=== PATIENT | female | born 1960 | race Two or more races ===

== ENCOUNTER 2024-06-02 00:22 | Emergency (ER) | payer MEDICARE, MEDICAID ==
[2024-06-02 01:02] LABS: BASOPHILS ABSOLUTE AUTO 0.06 K/uL (0.00-0.20); BASOPHILS PERCENT AUTO 0.6 % (0.0-1.0); EOSINOPHILS ABSOLUTE AUTO 0.08 K/uL (0.00-0.45); EOSINOPHILS PERCENT AUTO 0.8 % (0.0-6.0); HEMATOCRIT 36.1 % (37.0-47.0); HEMOGLOBIN 11.7 g/dL (12.0-16.0); IMMATURE GRAN ABSOLUTE AUTO 0.01 K/uL (0.00-0.05); IMMATURE GRAN PERCENT AUTO 0.1 % (0.0-0.4); LYMPHOCYTES ABSOLUTE AUTO 3.51 K/uL (1.00-4.80); LYMPHOCYTES PERCENT AUTO 34.2 % (24.0-44.0); MEAN CORPUSCULAR HEMOGLOBIN 27.3 pg (28.0-32.0); MEAN CORPUSCULAR HGB CONC 32.4 g/dL (32.0-36.0); MEAN CORPUSCULAR VOLUME 84.3 fL (83.0-99.0); MEAN PLATELET VOLUME 12.2 fL (9.4-12.3); MONOCYTES ABSOLUTE AUTO 0.82 K/uL (0.00-0.80); NEUTROPHILS ABSOLUTE AUTO 5.77 K/uL (1.80-7.70); NEUTROPHILS PERCENT AUTO 56.3 % (41.0-71.0); PLATELET COUNT,PLT 277 K/uL (150-400); RED BLOOD CELL COUNT 4.28 M/uL (4.10-5.30); WHITE BLOOD CELL COUNT,WBC 10.25 K/uL (3.9-11.3)
[2024-06-02 01:30] LABS: A/G RATIO 0.8 (0.9-1.6); ALBUMIN 3.2 g/dL (3.4-5.0); BILIRUBIN TOTAL 0.3 mg/dL (0.2-1.0); CALCIUM 9.5 mg/dL (8.5-10.1); CARBON DIOXIDE,CO2 29.8 mmol/L (21.0-32.0); CREATININE 0.7 mg/dL (0.6-1.0); EST CRCL DRUG DOSING (CG) 69.81 mL/min; POTASSIUM,K 3.5 mmol/L (3.5-5.1); PROTEIN TOTAL,TP 7.4 g/dL (6.4-8.2)
[2024-06-02 01:30] LABS: APPEARANCE,URINE CLEAR; BILIRUBIN,URINE NEGATIVE (NEGATIVE); COLOR,URINE YELLOW; GLUCOSE,URINE NEGATIVE (NEGATIVE); KETONES,URINE NEGATIVE (NEGATIVE); LEUKOCYTE ESTERASE,URINE NEGATIVE (NEGATIVE); NITRITE,URINE NEGATIVE (NEGATIVE); OCCULT BLOOD,URINE NEGATIVE (NEGATIVE); PROTEIN,URINE NEGATIVE (NEGATIVE); UROBILINOGEN,URINE 0.2 EU/dL (<2.0)
[2024-06-02] MEDS: Acetaminophen 325 MG Tab PO ONE (01:54)
[2024-06-02] MEDS: Ketorolac 30 MG/ML SDV IVPUSH ONE (01:55)
[2024-06-02] MEDS: Lidocaine 4% 1 each Patch TOP ONE (01:58)
== END 2024-06-02 04:02 | disposition home or self-care (01) ==
LOC: MW.ED 00:22
DX: M25.552 Pain in left hip (principal); M54.9 Dorsalgia, unspecified; Z75.8 Other problems related to medical facilities and other health care; Z88.8 Allergy status to other drugs, medicaments and biological substances; Z79.899 Other long term (current) drug therapy; W19.XXXA Unspecified fall, initial encounter
CPT/HCPCS: 36415; 72100; 73501; 80053; 81003; 85025; 96374; 99284; A9270; J1885; 99283

== ENCOUNTER 2024-06-03 01:38 | Emergency (ER) | payer MEDICARE, MEDICAID ==
[2024-06-03] MEDS: Acetaminophen 325 MG Tab PO ONE (02:10)
[2024-06-03] MEDS: Lidocaine 4% 1 each Patch TOP ONE (02:11)
[2024-06-03] MEDS: Ketorolac 30 MG/ML SDV IM ONE (02:12)
[2024-06-03] MEDS: Morphine 4 MG/ML Syringe IVPUSH ONE ×2 (04:29→11:07)
[2024-06-03] MEDS: Sodium Chloride 0.9% 2.5 ML Syringe FLUSH PRN (04:30)
[2024-06-03] MEDS: Sodium Chloride 0.9% 10 ML Syringe FLUSH PRN (04:30)
[2024-06-03 05:07] LABS: BASOPHILS ABSOLUTE AUTO 0.08 K/uL (0.00-0.20); BASOPHILS PERCENT AUTO 0.8 % (0.0-1.0); EOSINOPHILS ABSOLUTE AUTO 0.13 K/uL (0.00-0.45); EOSINOPHILS PERCENT AUTO 1.3 % (0.0-6.0); HEMATOCRIT 35.2 % (37.0-47.0); HEMOGLOBIN 11.4 g/dL (12.0-16.0); IMMATURE GRAN ABSOLUTE AUTO 0.03 K/uL (0.00-0.05); IMMATURE GRAN PERCENT AUTO 0.3 % (0.0-0.4); LYMPHOCYTES ABSOLUTE AUTO 3.86 K/uL (1.00-4.80); LYMPHOCYTES PERCENT AUTO 37.5 % (24.0-44.0); MEAN CORPUSCULAR HEMOGLOBIN 27.3 pg (28.0-32.0); MEAN CORPUSCULAR HGB CONC 32.4 g/dL (32.0-36.0); MEAN CORPUSCULAR VOLUME 84.2 fL (83.0-99.0); MEAN PLATELET VOLUME 11.8 fL (9.4-12.3); MONOCYTES ABSOLUTE AUTO 0.78 K/uL (0.00-0.80); MONOCYTES PERCENT AUTO 7.6 % (0.0-8.0); NEUTROPHILS ABSOLUTE AUTO 5.42 K/uL (1.80-7.70); NEUTROPHILS PERCENT AUTO 52.5 % (41.0-71.0); PLATELET COUNT,PLT 278 K/uL (150-400); RED BLOOD CELL COUNT 4.18 M/uL (4.10-5.30)
[2024-06-03 05:21] LABS: INR 1.06 (0.86-1.11)
[2024-06-03 05:29] LABS: A/G RATIO 0.9 (0.9-1.6); ALBUMIN 3.3 g/dL (3.4-5.0); BILIRUBIN TOTAL 0.4 mg/dL (0.2-1.0); CALCIUM 9.2 mg/dL (8.5-10.1); CARBON DIOXIDE,CO2 29.4 mmol/L (21.0-32.0); CREATININE 0.7 mg/dL (0.6-1.0); EST CRCL DRUG DOSING (CG) 66.75 mL/min; POTASSIUM,K 3.3 mmol/L (3.5-5.1); PROTEIN TOTAL,TP 7.1 g/dL (6.4-8.2)
[2024-06-03] MEDS: Ibuprofen 600 MG Tab PO ONE (09:42)
== END 2024-06-03 12:52 ==
LOC: MW.ED 01:38
DX: M84.452A Pathological fracture, left femur, initial encounter for fracture (principal); W19.XXXA Unspecified fall, initial encounter; Z79.899 Other long term (current) drug therapy; Z88.8 Allergy status to other drugs, medicaments and biological substances; Z75.8 Other problems related to medical facilities and other health care
CPT/HCPCS: 36415; 72131; 72192; 80053; 85025; 85610; 86850; 86900; 86901; 96372; 96374; 96376; 99285; A9270; J1885; J2270; J3490

== ENCOUNTER 2024-06-12 17:03 | Emergency (ER) | payer MEDICARE, MEDICAID ==
[2024-06-12] MEDS: Acetaminophen/oxyCODONE 325-10 MG Tab PO ONE (17:24)
[2024-06-12] MEDS: Ibuprofen 600 MG Tab PO ONE (20:56)
[2024-06-12 21:23] LABS: BASOPHILS ABSOLUTE AUTO 0.05 K/uL (0.00-0.20); BASOPHILS PERCENT AUTO 0.5 % (0.0-1.0); EOSINOPHILS ABSOLUTE AUTO 0.12 K/uL (0.00-0.45); EOSINOPHILS PERCENT AUTO 1.2 % (0.0-6.0); HEMATOCRIT 37.5 % (37.0-47.0); IMMATURE GRAN ABSOLUTE AUTO 0.02 K/uL (0.00-0.05); IMMATURE GRAN PERCENT AUTO 0.2 % (0.0-0.4); LYMPHOCYTES ABSOLUTE AUTO 3.76 K/uL (1.00-4.80); LYMPHOCYTES PERCENT AUTO 39.1 % (24.0-44.0); MEAN CORPUSCULAR VOLUME 84.3 fL (83.0-99.0); MEAN PLATELET VOLUME 11.4 fL (9.4-12.3); MONOCYTES ABSOLUTE AUTO 0.76 K/uL (0.00-0.80); MONOCYTES PERCENT AUTO 7.9 % (0.0-8.0); NEUTROPHILS PERCENT AUTO 51.1 % (41.0-71.0); PLATELET COUNT,PLT 291 K/uL (150-400); RED BLOOD CELL COUNT 4.45 M/uL (4.10-5.30); WHITE BLOOD CELL COUNT,WBC 9.61 K/uL (3.9-11.3)
[2024-06-12 23:59] LABS: A/G RATIO 0.8 (0.9-1.6); ALBUMIN 3.3 g/dL (3.4-5.0); BILIRUBIN TOTAL 0.4 mg/dL (0.2-1.0); C-REACTIVE PROTEIN 1.85 mg/dL (<0.3); CALCIUM 9.5 mg/dL (8.5-10.1); CARBON DIOXIDE,CO2 28.2 mmol/L (21.0-32.0); CREATININE 0.6 mg/dL (0.6-1.0); EST CRCL DRUG DOSING (CG) 77.88 mL/min; POTASSIUM,K 3.8 mmol/L (3.5-5.1); PROTEIN TOTAL,TP 7.3 g/dL (6.4-8.2)
== END 2024-06-13 00:48 | disposition home or self-care (01) ==
LOC: MW.ED 17:03
DX: G89.18 Other acute postprocedural pain (principal); M79.652 Pain in left thigh; Z87.39 Personal history of other diseases of the musculoskeletal system and connective tissue; Z88.8 Allergy status to other drugs, medicaments and biological substances; Z79.899 Other long term (current) drug therapy
CPT/HCPCS: 36415; 72192; 73502; 73552; 80053; 85025; 85652; 86140; 99284; A9270; 99283

== ENCOUNTER 2024-06-18 12:16 | Emergency (ER) | payer MEDICARE, MEDICAID ==
[2024-06-18] MEDS: Lidocaine 4% 1 each Patch TOP STA (13:08)
[2024-06-18] MEDS: traMADol 50 MG Tab PO STA (13:08)
== END 2024-06-18 13:42 | disposition home or self-care (01) ==
LOC: MW.ED 12:16
DX: G89.18 Other acute postprocedural pain (principal); M25.552 Pain in left hip; Z79.899 Other long term (current) drug therapy; Z88.8 Allergy status to other drugs, medicaments and biological substances; Z75.8 Other problems related to medical facilities and other health care
CPT/HCPCS: 99283; A9270

== ENCOUNTER 2024-06-26 23:46 | Emergency (ER) | payer MEDICARE, MEDICAID ==
[2024-06-27] MEDS ORDERED: oxyCODONE 5 MG Tab PO ONE (01:38)
[2024-06-27] MEDS: Acetaminophen 500 MG Tab PO ONE (01:48)
[2024-06-27] MEDS: Orphenadrine 60 MG/2 ML Inj IM ONE (01:49)
[2024-06-27] MEDS: oxyCODONE 5 MG Tab PO ONE (04:12)
== END 2024-06-27 04:36 | disposition home or self-care (01) ==
LOC: MW.ED 23:46
DX: M25.552 Pain in left hip (principal); G89.29 Other chronic pain; M54.50 Low back pain, unspecified; I10 Essential (primary) hypertension; Z79.899 Other long term (current) drug therapy; Z88.8 Allergy status to other drugs, medicaments and biological substances
CPT/HCPCS: 96372; 99284; A9270; J2360

== ENCOUNTER 2024-09-25 14:27 | Emergency (ER) | payer MEDICARE, MEDICAID | END 2024-09-25 15:29 | disposition home or self-care (01) | LOC: MW.ED 14:27 | DX: B86 Scabies (principal); G62.9 Polyneuropathy, unspecified; Z76.0 Encounter for issue of repeat prescription; I10 Essential (primary) hypertension; Z88.8 Allergy status to other drugs, medicaments and biological substances; Z79.899 Other long term (current) drug therapy; Z75.8 Other problems related to medical facilities and other health care | CPT/HCPCS: 99282; 99283 ==